=== PATIENT | female | born 1960 | race Caucasian/White ===

== ENCOUNTER 2024-04-12 16:22 | Inpatient (IN) | payer OTHER ==
[~2024-04-12] VITALS: Ht 157.5 cm; Wt 49.9 kg
[~2024-04-12 16:22] MED LIST: ALBU0.0939 IH; ATI.5 PO; BENZ-284 PO; COL250 PO; FOLI1TAB19 PO; OLAN5TAB29 PO; PRED20TA5 PO; QUET400T PO; SYN.1 PO; TRAZ-343 PO
[2024-04-12 16:25] VITALS: BP 111/64; PULSE 67; RESP 20; TEMP 98.2; O2SAT 97
[2024-04-12] MEDS: NACL 0.9% 1,000 ML IV ONE (17:30)
[2024-04-12] MEDS ORDERED: LORazepam 2 MG/ML VIAL ONE (17:36)
[2024-04-12] MEDS ORDERED: HALOPERIDOL IM 5 MG/ML VIAL ONE (17:36)
[2024-04-12 17:41] LABS: BASOPHILS # (AUTO) 0.1 K/uL (0.00-0.22); BASOPHILS % (AUTO) 0.7 % (0.0-2.0); EOSINOPHILS # (AUTO) 0.3 K/uL (0-0.4); HEMATOCRIT 37.5 % (36-48); HEMOGLOBIN 12.9 g/dL (12.0-16.0); LYMPHOCYTES % (AUTO) 24.7 % (20.5-51.1); MEAN CORPUSCULAR HEMOGLOBIN 30 pg (27-31); MEAN CORPUSCULAR HGB CONC 35 g/dL (33-37); MEAN CORPUSCULAR VOLUME 86.3 fL (80-94); MONOCYTES # (AUTO) 0.6 K/uL (0.8-1.0); MONOCYTES % (AUTO) 7.8 % (1.7-9.3); NEUTROPHILS % (AUTO) 62.8 % (42.2-75.2); PLATELET COUNT (AUTO) 97 K/uL (140-450); RED BLOOD CELL COUNT(AUTO) 4.34 MIL/uL (4.20-5.40); RED CELL DISTRIBUTION WIDTH 13.6 % (11.6-13.7)
[2024-04-12 18:09] LABS: ALANINE AMINOTRANSFERASE 21 U/L (12-78); ALBUMIN 3.2 g/dL (3.4-5.0); ALKALINE PHOSPHATASE 84 U/L (50-136); ASPARTATE AMINOTRANSFERASE 16 U/L (15-37); BILIRUBIN,DIRECT 0.1 mg/dL (0.0-0.3); LACTIC ACID 1.1 mmol/L (0.4-2.0); TOTAL BILIRUBIN 0.3 mg/dL (0.0-1.0); TOTAL PROTEIN, SERUM 6.4 g/dL (6.4-8.2)
[2024-04-12 18:12] LABS: ANION GAP 10.7 (8-16); CALCIUM 9.2 mg/dL (8.5-10.1); CARBON DIOXIDE 29.4 mmol/L (21-32); CREATININE 0.8 mg/dL (0.6-1.3); POTASSIUM 4.1 mmol/L (3.5-5.1)
[2024-04-12] MEDS: HALOPERIDOL IM 5 MG/ML VIAL IM ONE (19:11)
[2024-04-12] MEDS: LORazepam 2 MG/ML VIAL IVP ONE (19:11)
[2024-04-12 19:30] LABS: APPEARANCE,URINE CLEAR (CLEAR); COLOR,URINE YELLOW (YELLOW)
[2024-04-12 19:31] LABS: BILIRUBIN,URINE NEGATIVE (NEGATIVE); BLOOD, URINE 1+ (NEGATIVE); UGLUCOSE NEGATIVE (NEGATIVE)
[2024-04-12 19:32] LABS: LEUKOCYTE ESTERASE ,URINE 2+ (NEGATIVE); NITRITE, URINE NEGATIVE (NEGATIVE); PROTEIN,URINE TRACE (NEGATIVE); UROBILINOGEN,URINE 0.2 EU/dL (0.2 - 1)
[2024-04-12 19:34] LABS: BACTERIA,URINE >30 (MANY) /HPF (None Seen); RBC,URINE 0-5 /HPF (0-5); SQUAMOUS EPITHELIAL CELL,UR 0-3 (FEW) /LPF (0-3 (FEW)); WBC,URINE >25 (MANY) /HPF (0-5)
[2024-04-12 19:35] LABS: MUCUS,URINE None Seen /LPF (None Seen)
[2024-04-12] MEDS ORDERED: cefTRIAXone 1,000 MG VIAL ONE (21:49)
[2024-04-12] MEDS ORDERED: ATI.5 PO (22:39)
[2024-04-12] MEDS ORDERED: METO-485 PO (22:39)
[2024-04-12] MEDS ORDERED: MULT-2171 PO (22:39)
[2024-04-12] MEDS ORDERED: DICL20GE TP (22:39)
[2024-04-12] MEDS ORDERED: [UNRECOGNIZED DRUG - CODE] MM (22:39)
[2024-04-12] MEDS ORDERED: ASCO500T95 PO (22:39)
[2024-04-12] MEDS ORDERED: LACT-191 PO (22:39)
[2024-04-12] MEDS ORDERED: MECL-303 PO (22:39)
[2024-04-12] MEDS ORDERED: ACET-1182 PO (22:39)
[2024-04-12] MEDS ORDERED: AMLO2.5T PO (22:39)
[2024-04-12] MEDS ORDERED: PANT40EC PO (22:39)
[2024-04-12] MEDS ORDERED: ESCI10TA PO (22:39)
[2024-04-12] MEDS ORDERED: RISP0.5T3 PO (22:39)
[2024-04-12] MEDS ORDERED: ZOLP5TAB7 PO (22:39)
[2024-04-12] MEDS ORDERED: ALBU3SOL83 IH (22:39)
[2024-04-12] MEDS ORDERED: VALB40CA2 PO (22:39)
[2024-04-12] MEDS ORDERED: DOCU-299 PO (22:39)
[2024-04-12] MEDS ORDERED: TUBE5SOL12 TD (22:39)
[2024-04-12] MEDS ORDERED: SIME80TA41 PO (22:39)
[2024-04-12] MEDS ORDERED: MORPHINE SULFATE 2 MG/ML SYR IVP PRN (22:40)
[2024-04-12] MEDS ORDERED: ACETAMINOPHEN 325 MG TAB PO PRN (22:40)
[2024-04-12] MEDS ORDERED: ONDANSETRON 4 MG/2 ML VIAL IVP PRN (22:40)
[2024-04-12] MEDS: NACL 0.9% 1,000 ML IV SCH (23:22)
[2024-04-13 00:35] VITALS: PULSE 60; RESP 18; O2SAT 96
[2024-04-13 04:00] VITALS: BP 106/55; PULSE 64; RESP 18; TEMP 97.9; O2SAT 96
[2024-04-13 07:09] LABS: ANION GAP 10.8 (8-16); CARBON DIOXIDE 27.5 mmol/L (21-32); CREATININE 0.5 mg/dL (0.6-1.3); POTASSIUM 4.3 mmol/L (3.5-5.1)
[2024-04-13 07:12] LABS: BASOPHILS % (AUTO) 0.6 % (0.0-2.0); EOSINOPHILS # (AUTO) 0.3 K/uL (0-0.4); EOSINOPHILS % (AUTO) 4.3 % (0.0-4.0); HEMATOCRIT 35.6 % (36-48); HEMOGLOBIN 12.2 g/dL (12.0-16.0); LYMPHOCYTES # (AUTO) 2.3 K/uL (2.5-16.5); LYMPHOCYTES % (AUTO) 29.8 % (20.5-51.1); MEAN CORPUSCULAR HEMOGLOBIN 30 pg (27-31); MEAN CORPUSCULAR HGB CONC 34 g/dL (33-37); MONOCYTES # (AUTO) 0.5 K/uL (0.8-1.0); MONOCYTES % (AUTO) 6.7 % (1.7-9.3); NEUTROPHILS # (AUTO) 4.5 K/uL (1.8-7.7); NEUTROPHILS % (AUTO) 58.6 % (42.2-75.2); PLATELET COUNT (AUTO) 97 K/uL (140-450); RED BLOOD CELL COUNT(AUTO) 4.09 MIL/uL (4.20-5.40); RED CELL DISTRIBUTION WIDTH 13.6 % (11.6-13.7); WHITE BLOOD COUNT (AUTO) 7.7 K/uL (4.8-10.8)
[2024-04-13 08:00] VITALS: BP 109/63; PULSE 66; RESP 18; TEMP 97.3; O2SAT 97
[2024-04-13] MEDS: LORazepam 2 MG/ML VIAL IVP PRN (10:52)
[2024-04-13 16:00] VITALS: BP 109/55; PULSE 57; RESP 18; TEMP 97.5; O2SAT 97
[2024-04-13] MEDS: LORazepam 0.5 MG TAB PO PRN (18:44)
[2024-04-13] MEDS: ZOLPIDEM 5 MG TAB PO SCH (19:59)
[2024-04-13 20:00] VITALS: BP 111/59; PULSE 62; PULSE 69; RESP 18; TEMP 97.9; O2SAT 96; O2SAT 97
[2024-04-13] MEDS: SIMETHICONE 80 MG TAB.CHEW PO SCH (20:00)
[2024-04-13] MEDS: traZODone 50 MG TAB PO SCH (20:00)
[2024-04-13] MEDS: risperiDONE 1 MG TAB PO SCH (20:01)
[2024-04-13] MEDS: QUEtiapine FUMARATE 100 MG TAB PO SCH (20:02)
[2024-04-13] MEDS: OLANZapine 5 MG TAB PO SCH (20:02)
[2024-04-13] MEDS: traZODone 50 MG TAB ONE (20:53)
[2024-04-13] MEDS: SIMETHICONE 80 MG TAB.CHEW ONE (20:53)
[2024-04-13] MEDS: ZOLPIDEM 5 MG TAB ONE (20:53)
[2024-04-13] MEDS: risperiDONE 1 MG TAB ONE (20:53)
[2024-04-13] MEDS: QUEtiapine FUMARATE 100 MG TAB ONE (20:54)
[2024-04-13] MEDS: OLANZapine 5 MG TAB ONE (20:54)
[2024-04-13] MEDS: BENZTROPINE 1 MG TAB PO SCH (20:55)
[2024-04-14] MEDS: LEVOTHYROXINE 0.1 MG TAB PO SCH (06:44)
[2024-04-14 08:00] VITALS: BP 98/56; PULSE 52; PULSE 81; RESP 18; TEMP 96.9; O2SAT 97
[2024-04-14] MEDS ORDERED: VALBENAZINE TOSYLATE PO SCH (09:00)
[2024-04-14] MEDS: lamoTRIgine 25 MG TAB PO SCH (10:05)
[2024-04-14] MEDS: ESCITALOPRAM 20 MG TAB PO SCH (10:05)
[2024-04-14 20:00] VITALS: BP_SYST 105; BP_SYST 93; BP_DIAS 45; BP_DIAS 55; PULSE 18; PULSE 56; PULSE 60; RESP 18; TEMP 98.1; O2SAT 100
[2024-04-15 08:00] VITALS: PULSE 61; RESP 17; O2SAT 98
[2024-04-15 10:00] VITALS: BP 106/56; PULSE 61; RESP 17; TEMP 98.1; O2SAT 98
[2024-04-15] MEDS ORDERED: CEPH-588 PO (12:29)
[2024-04-15 16:00] VITALS: BP 110/60; PULSE 56; RESP 18; TEMP 97.9; O2SAT 98
[2024-04-15 20:00] VITALS: BP 108/62; PULSE 70; RESP 19; TEMP 97.8; O2SAT 98
[2024-04-16 04:00] VITALS: BP 115/60; PULSE 74; RESP 20; TEMP 97.6; O2SAT 99
[2024-04-16 08:00] VITALS: PULSE 63; RESP 17; O2SAT 98
[2024-04-16 12:00] VITALS: BP 113/46; PULSE 63; RESP 17; TEMP 97.8; O2SAT 98
== END 2024-04-16 15:40 | DRG 640 ==
LOC: MED 16:22 → MTU 22:43
PROVIDERS: ADMIT Hospitalist; ATTEND Hospitalist
DX: E86.0 Dehydration (principal); G93.41 Metabolic encephalopathy; N39.0 Urinary tract infection, site not specified; F03.B11 Unspecified dementia, moderate, with agitation; E03.9 Hypothyroidism, unspecified; I10 Essential (primary) hypertension; G47.00 Insomnia, unspecified; F20.9 Schizophrenia, unspecified; F32.A Depression, unspecified; Z88.6 Allergy status to analgesic agent; Z88.0 Allergy status to penicillin; Z88.8 Allergy status to other drugs, medicaments and biological substances; Z79.899 Other long term (current) drug therapy; Z79.51 Long term (current) use of inhaled steroids; Z74.01 Bed confinement status
CPT/HCPCS: 36415; 71045; 80048; 80076; 81001; 83605; 83735; 83880; 84484; 85025; 87081; 87086; 87186; 93005; 96361; 96365; 96372; 96375; 99285; J0696; J1630; J2060; J7060